=== PATIENT | female | born 1980 | race Asian ===

== ENCOUNTER 2016-12-11 05:20 | Inpatient (IN) | payer OTHER ==
[2016-12-11 05:59] LABS: HEMOGLOBIN 12.9 gm/dl (12.3-15.3); RED BLOOD COUNT 4.04 M/UL (4.00-5.10)
[2016-12-12 03:12] LABS: HEMOGLOBIN 12.6 gm/dl (12.3-15.3)
[2016-12-13] MEDS ORDERED: COLACE 100MG C100 MG PO (10:42)
== END 2016-12-13 13:26 | disposition home or self-care (01) | DRG 775 ==
LOC: OB 05:20
PROVIDERS: Obstetrics & Gynecology; ADMIT Obstetrics & Gynecology
PROC: 10E0XZZ Delivery of Products of Conception, External Approach (ICD-10-PCS; principal; 2016-12-11)
PROC: 3E033VJ Introduction of Other Hormone into Peripheral Vein, Percutaneous Approach (ICD-10-PCS; principal; 2016-12-11)
PROC: 10907ZC Drainage of Amniotic Fluid, Therapeutic from Products of Conception, Via Natural or Artificial Opening (ICD-10-PCS; principal; 2016-12-11)
PROC: 3E0234Z Introduction of Serum, Toxoid and Vaccine into Muscle, Percutaneous Approach (ICD-10-PCS; 2016-12-13)
DX: O75.89 Other specified complications of labor and delivery (principal); M54.9 Dorsalgia, unspecified; Z3A.39 39 weeks gestation of pregnancy; Z37.0 Single live birth; M79.605 Pain in left leg; Z23 Encounter for immunization
CPT/HCPCS: 36415; 82800; 85014; 85018; 85025; 90715; J2590; J3430; J7120